=== PATIENT | male | born 1955 | race Asian ===

== ENCOUNTER 2018-10-28 13:27 | Inpatient (IN) | payer BC ==
--- NOTE | 2018-10-28 14:11 | ED ---
HPI Chest Pain - HPI Summary HPI Summary: Pt is a 63 y/o M presenting to the ED with a chief complaint of chest pain onset 3-4 wks ago described as burning, is worsened with exercise, and mostly alleviated by resting. The pain waxes and wanes in severity, presently at 1/10. He sees Dr. Manriquez yearly due to previous angiogram, and was seen this morning and instructed to go to the ED due to an abnormal EKG. He denies associated sob. - History of Current Complaint Chief Complaint: EDChestPainROMI Time Seen by Provider: 10/28/18 13:49 Hx Obtained From: Patient Onset/Duration: Started Weeks Ago, Still Present Timing: Intermittent, Lasting Weeks Initial Severity: Moderate Current Severity: Mild Pain Intensity: 2 Pain Scale Used: 0-10 Numeric Chest Pain Location: Lower Sternal Chest Pain Radiates: No Character: Burning Aggravating Factor(s): Exertion Alleviating Factor(s): Rest Associated Signs and Symptoms: Positive: Chest Pain. Negative: Shortness of Breath - Allergy/Home Medications Allergies/Adverse Reactions: Allergies Allergy/AdvReac Type Severity Reaction Status Date / Time No Known Allergies Allergy Verified 11/29/15 14:10 Home Medications: Home Medications Aspirin 81 mg CHEW TAB* [Aspirin Low Dose TAB*] 81 mg PO DAILY 10/28/18 [ History Confirmed 10/28/18] Multivit-Min/FA/Lycopen/Lutein [Centrum Silver Men Tablet] 1 each PO DAILY 10/28 [History Confirmed 10/28/18] Nitroglycerin TAB 0.4 MG* 0.4 mg SL Q5M PRN 10/28/18 [History Confirmed 10/28/18 ] PMH/Surg Hx/FS Hx/Imm Hx Previously Healthy: Yes Endocrine/Hematology History: Denies: Hx Anticoagulant Therapy Cardiovascular History: Reports: Other Cardiovascular Problems/Disorders - hx angiogram Respiratory History: Denies: Hx Asthma Infectious Disease History: No Infectious Disease History: Denies: Traveled Outside the [place] in Last 30 Days Review of Systems Positive: Chest Pain Negative: Shortness Of Breath All Other Systems Reviewed And Are Negative: Yes Physical Exam - Summary Physical Exam Summary: Appearance: The patient is well-nourished in no acute distress and in no acute pain. Skin: The skin is warm and dry and skin color reflects adequate perfusion. HEENT: The head is normocephalic and atraumatic. The pupils are equal and reactive. The conjunctivae are clear and without drainage. Nares are patent and without drainage. Mouth reveals moist mucous membranes and the throat is without erythema and exudate. The external ears are intact. The ear canals are patent and without drainage. The tympanic membranes are intact. Neck: The neck is supple with full range of motion and non-tender. There are no carotid bruits. There is no neck vein distension. Respiratory: Chest is non-tender. Lungs are clear to auscultation and breath sounds are symmetrical and equal. Cardiovascular: Heart is regular rate and rhythm. There is no murmur or rub auscultated. There is no peripheral edema and pulses are symmetrical and equal. Abdomen: The abdomen is soft and non-tender. There are normal bowel sounds heard in all four quadrants and there is no organomegaly palpated. Musculoskeletal: There is no back tenderness noted. Extremities are non-tender with full range of motion. There is good capillary refill. There is no peripheral edema or calf tenderness elicited. Neurological: Patient is alert and oriented to person, place and time. The patient has symmetrical motor strength in all four extremities. Cranial nerves are grossly intact. Deep tendon reflexes are symmetrical and equal in all four extremities. Psychiatric: The patient has an appropriate affect and does not exhibit any anxiety or depression. Triage Information Reviewed: Yes Vital Signs On Initial Exam: Initial Vitals Temp Pulse Resp BP Pulse Ox 98 F 66 16 127/82 97 10/28/18 13:29 10/28/18 13:29 10/28/18 13:29 10/28/18 13:29 10/28/18 13:29 Vital Signs Reviewed: Yes Diagnostics - Vital Signs Vital Signs Temp Pulse Resp BP Pulse Ox 10/28/18 13:29 98 F 66 16 127/82 97 - Laboratory Result Diagrams: 10/28/18 14:00 10/28/18 14:00 Lab Statement: Any lab studies that have been ordered have been reviewed, and results considered in the medical decision making process. - EKG 1339 Cardiac Rate: NL - 65bpm EKG Rhythm: Sinus Rhythm Chest Pain Course/Dx - Course Course Of Treatment: Mr. Willis presented with a worrisome history for unstable angina over the last several weeks. He was nontoxic in appearance is stable vital signs and a workup was ordered. Dr. cardenas came to the department and took him to the Instrumentation Tech. - Diagnoses Provider Diagnoses: Unstable angina Discharge - Sign-Out/Discharge Documenting (check all that apply): Patient Departure Patient Received Moderate/Deep Sedation with Procedure: No - Discharge Plan Condition: Stable Disposition: ADMITTED TO [facility] Referrals: Kishore Tate MD [Primary Care Provider] - - Billing Disposition and Condition Condition: STABLE Disposition: Admitted to [facility] - Attestation Statements Document Initiated by Scribe: Yes Documenting Scribe: Josiane Park Provider For Whom Teresoibe is Documenting (Include Credential): Meño Dillard MD. Scribe Attestation: Josiane Nova, scribed for Meño Dillard MD. on 10/28/18 at 1839. Scribe Documentation Reviewed: Yes Provider Attestation: The documentation as recorded by the scribeJosiane accurately reflects the service I personally performed and the decisions made by me, Meño Dillard MD. Status of Scribe Document: Viewed Consult Consult: [id number] - Spoke with Dr. Suresh who will be admitting the pt to do a cardiac cath.
[2018-10-28 14:26] LABS: ABS Basophils 0 10^3/ul (0-0.2); ABS Eosinophils 0 10^3/ul (0-0.6); ABS Lymphocytes 1.5 10^3/ul (1.0-4.8); ABS Monocytes 0.4 10^3/ul (0-0.8); ABS Neutrophils 5.1 10^3/ul (1.5-7.7); ABS Nucleated RBC 0 10^3/ul; Eosinophil % 0.3 %; Hematocrit 41 % (36-46); Hemoglobin 14.3 g/dL (14.0-18.0); Lymphocyte % 20.9 %; Mean Corpuscular HGB Conc 35 g/dL (31-36); Mean Corpuscular Hemoglobin 30 pg (27-31); Mean Corpuscular Volume 86 fL (80-94); Mean Platelet Volume 7.7 fL (7.4-10.4); Nucleated Red Blood Cells % 0.1; Platelet Count 204 10^3/uL (150-450); Red Blood Count 4.78 10^6 /uL (4.18-5.48); Red Cell Distribution Width 13 % (10.5-15)
[2018-10-28 14:41] LABS: INR 1.01 (0.77-1.02)
[2018-10-28 14:43] LABS: ALT 17 U/L (7-52); AST 18 U/L (13-39); Albumin 4.3 g/dL (3.2-5.2); Albumin/Globulin Ratio 1.6 (1-3); Alkaline Phosphatase 79 U/L (34-104); Anion Gap 8 mmol/L (2-11); BUN/Creatinine Ratio 15.1 (8-20); Blood Urea Nitrogen 14 mg/dL (6-24); CO2 Carbon Dioxide 27 mmol/L (22-32); Calcium 9.3 mg/dL (8.6-10.3); Chloride 103 mmol/L (101-111); EGFR African American 99.6 (>60); EGFR Non-African American 82.3 (>60); Globulin 2.7 g/dL (2-4); Glucose 108 mg/dL (70-100); Potassium 3.9 mmol/L (3.5-5.0); Sodium 138 mmol/L (135-145)
[2018-10-28] MEDS ORDERED: fentaNYL* 50 MCG/ML 2 ML VIAL (100 MCG VIAL) ONE (14:44)
[2018-10-28] MEDS ORDERED: Midazolam* 1 MG/ML 5 ML VIAL (5 MG) ONE (14:44)
[2018-10-28] MEDS ORDERED: Heparin(*) 1000 UNIT/ML 10 ML VIAL CATH LAB IV ONE (14:44)
[2018-10-28] MEDS ORDERED: Lidocaine 1% INJ* 10 MG/ML 30 ML SDV ONE (14:45)
[2018-10-28] MEDS ORDERED: VERAPAMIL 2.5 MG/ML 2 ML VIAL ** 5 mg/2 ml ONE (14:45)
[2018-10-28] MEDS ORDERED: Iohexol 350 (CONTRAST) 200 ML MDV IV ONE ×2 (14:45→14:47)
[2018-10-28] MEDS ORDERED: nitroGLYCERIN DRIP* 25,000 MCG/250 ML BTL ONE (14:45)
[2018-10-28] MEDS ORDERED: Heparin 2 UNITS/ML IVPREMIX* 3,000 UNIT/1,500 ML BAG IV ONE (14:47)
[2018-10-28 14:51] LABS: Troponin I 0.14 ng/mL (<0.04)
[2018-10-28] MEDS ORDERED: Aspirin 81 mg CHEW TAB* 81 MG TAB.CHEW ONE (14:57)
[2018-10-28 15:11] LABS: TSH (Thyroid Stimulating Horm) 1.39 mcIU/mL (0.34-5.60)
[2018-10-28] MEDS ORDERED: Acetaminophen TAB* 325 MG PO PRN (17:40)
[2018-10-28] MEDS: Enoxaparin(*) 80 MG/0.8 ML SYR SUBCUT SCH (18:57)
[2018-10-28] MEDS: Atorvastatin* 80 MG TAB PO SCH (18:57)
[2018-10-28] MEDS: Metoprolol Tartrate TAB* 25 MG PO SCH (18:57)
[2018-10-28 19:04] LABS: Troponin I 0.16 ng/mL (<0.04)
--- NOTE | 2018-10-28 19:32 | HP ---
CC: Dr. Manriquez HISTORY AND PHYSICAL: DATE OF ADMISSION: 10/28/18 EGG SMELLER: Dr. Manriquez. HISTORY OF PRESENT ILLNESS: A 63-year-old male referred from Dr. Manriquez's office to the ER because o f unstable angina. He had previous catheterization around 1999, which showed no disease. In 2009, he had an 80% distal RPDA stenosis, too small for revascularization. He was treated medically and has done well. He has done an excellent job at secondary risk factor modification, exercises regularly. In hindsight, for the past 4 to 5 weeks, he has had recurring episodes of heartburn, which had been both at rest as wel l as with exertion, and his exercise tolerance has decreased because of the onset of chest pain on . His longest episode of chest pain was a day or two ago, lasted [address] Manriquez today where EKG showed new inferolateral nonspecific ST changes, and he was referred to the E R in anticipation of catheterization. He has no history of palpitations, heart failure, or syncope. PAST MEDICAL HISTORY: Hypertension, hyperlipidemia. PREHOSPITAL MEDICATIONS: 1. Aspirin 81 mg daily. 2. Lipitor 20 mg daily. ALLERGIES: None to medications. FAMILY HISTORY: Positive for premature coronary artery disease with brothers having had stents and h is father having had coronary artery disease in his 50s. SOCIAL HISTORY: He is a nonsmoker. He is . 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 REVIEW OF SYSTEMS: General: No weight loss, no fever. He is active. He exercises. 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 GI: No history of peptic ulcer disease or bleeding. Circulatory: No claudicatio n. Remainder all negative. PHYSICAL EXAMINATION GENERAL: He looks well. He is pain free. He is comfortable. He is articulate. VITAL SIGNS: BP ER 127/82, pulse 63, sinus rhythm. HEENT: No xanthelasma, scleral injection, or jaundice. He does have bilateral arcus senilis. NECK: JVP and carotids normal. No bruits, no thyromegaly. LUNGS: Clear to percussion and auscultation. CARDIAC: Chest wall not tender, apex and RV not palpable, normal heart sounds with regular rhythm. No audible gallop, murmur, or rub. ABDOMEN: Soft, nontender, no bruit. I cannot feel the aorta or liver edge. Femoral pulses 2+, no br uits. EXTREMITIES: Radial pulses 2+, pedal pulses 2+. He has no cyanosis, clubbing, or edema. PSYCH: He is oriented, appropriate. SKIN: Warm and perfused. DIAGNOSTIC STUDIES/LAB DATA: CBC from today is normal, remainder is pending. EKG: ER EKG again shows inferolateral nonspecific ST changes, new from an old tracing, 2009. IMPRESSION: 1. Unstable angina. His DANNY score is 5. We discussed catheterization and possible percutaneous re vascularization. He is familiar with these procedures. We discussed procedural risks, including the potential need for transfer for emergent bypass grafting in case of catastrophic complications. All questions were answered. 2. Hypertension, controlled. 3. Hyperlipidemia, I do not have his most recent lipid profile yet, but he tells me it is excellent. [id number]/[facility] #: [id number]
[2018-10-29 00:40] LABS: Troponin I 0.11 ng/mL (<0.04)
[2018-10-29] MEDS: Metoprolol Tartrate TAB* 25 MG PO SCH (03:04)
[2018-10-29] MEDS: Enoxaparin(*) 80 MG/0.8 ML SYR SUBCUT SCH (06:45)
[2018-10-29] MEDS ORDERED: NS 0.9% 1000 ML** 1,000 ML IV SCH (08:00)
[2018-10-29] MEDS ORDERED: Heparin(*) 1000 UNIT/ML 10 ML VIAL CATH LAB IV ONE (09:21)
[2018-10-29] MEDS ORDERED: nitroGLYCERIN DRIP* 25,000 MCG/250 ML BTL ONE (09:21)
[2018-10-29] MEDS ORDERED: VERAPAMIL 2.5 MG/ML 2 ML VIAL ** 5 mg/2 ml ONE (09:21)
[2018-10-29] MEDS ORDERED: Iohexol 350 (CONTRAST) 200 ML MDV IV ONE ×2 (09:21→09:22)
[2018-10-29] MEDS ORDERED: Lidocaine 1% INJ* 10 MG/ML 30 ML SDV ONE (09:21)
[2018-10-29] MEDS ORDERED: Heparin 2 UNITS/ML IVPREMIX* 2,000 UNIT/1,000 ML BAG IV ONE (09:22)
[2018-10-29] MEDS: Aspirin 81 mg CHEW TAB* 81 MG TAB.CHEW PO SCH (09:31)
[2018-10-29] MEDS ORDERED: fentaNYL* 50 MCG/ML 2 ML VIAL (100 MCG VIAL) ONE (09:50)
[2018-10-29] MEDS ORDERED: Midazolam* 1 MG/ML 5 ML VIAL (5 MG) ONE (09:50)
[2018-10-29] MEDS ORDERED: Ticagrelor* 90 MG TAB PO ONE (10:29)
[2018-10-29] MEDS ORDERED: NS 0.9% 1000 ML** 400 ML IV SCH (11:15)
[2018-10-29] MEDS: Nitroglycerin TAB 0.4 MG* 0.4 MG TAB SL PRN ×2 (19:27→21:47)
[2018-10-29] MEDS: Atorvastatin* 80 MG TAB PO SCH (19:30)
[2018-10-29] MEDS: Ticagrelor* 90 MG TAB PO SCH (20:43)
[2018-10-29] MEDS: Metoprolol Tartrate TAB* 50 mg PO SCH (20:43)
[2018-10-30] MEDS: Metoprolol Tartrate TAB* 25 MG PO SCH (03:36)
[2018-10-30 05:18] LABS: BUN/Creatinine Ratio 13.7 (8-20); Calcium 8.9 mg/dL (8.6-10.3); EGFR African American 97.2 (>60); EGFR Non-African American 80.3 (>60); Potassium 4.1 mmol/L (3.5-5.0)
[2018-10-30] MEDS: Ticagrelor* 90 MG TAB PO SCH (09:54)
[2018-10-30] MEDS: Aspirin 81 mg CHEW TAB* 81 MG TAB.CHEW PO SCH (09:54)
[2018-10-30] MEDS: Metoprolol Tartrate TAB* 50 mg PO SCH (09:54)
[2018-10-30 12:12] LABS: CRP High Sensitivity 0.37 mg/L (<2.00)
[2018-10-30 14:52] VITALS: BP 121/68
--- NOTE | 2018-10-30 21:16 | DS ---
CC: Dr. Kishore Tate; Dr. Manriquez * DISCHARGE SUMMARY: DATE OF ADMISSION: 10/28/18 DATE OF DISCHARGE: 10/30/18 PRIMARY CARE PHYSICIAN: Dr. Kishore Tate. WATER AND GAS HELPER: Dr. Manriquez. DISCHARGE DIAGNOSES: 1. Non-ST elevation myocardial infarction. 2. Coronary artery disease by prior coronary angiography. 3. Strong family history of diabetes. 4. Hyperlipidemia. 5. Hypertension. 6. Hyperglycemia. PROCEDURES: Cardiac cath; stent placement, RCA, radial approach, with deployment of a 4 x 20 Synergy drug-eluting stent postdilated to 4.5 mm NC. CONDITION ON DISCHARGE: Stable. DISCHARGE MEDICATIONS: 1. Aspirin 81 mg daily. 2. Lipitor increased to 80 mg daily in part for pleiotropic benefit. New medications: 1. Metoprolol tartrate 50 mg b.i.d. 2. Brilinta 90 mg b.i.d. for a minimum of 1 year without interruption. Continue nitroglycerin 0.4 sublingual p.r.n. PENDING AT THE TIME OF DISCHARGE: Lab results of hemoglobin A1c and high- sensitivity CRP. FOLLOWUP: He will call tomorrow to make an appointment to follow with Dr. Yun for a wrist check next week, subsequent followup with Dr. Manriquez. HISTORY: See H and P. HOSPITAL COURSE: Labs, postprocedure BMP remained stable. Of note, he had a fasting blood sugar of 116 this morning. Looking back over his glucoses, they have ranged from normal to as high as 116. Hence, A1c was ordered and is pending. His cholesterol was 132 with triglycerides 147, LDL of 59, HDL of 43.7 on his admission dose of Lipitor of 20 mg daily. HS-CRP is pending. Lipitor was increased because of its pleiotropic benefit. He was also started on a beta-wen for cardioprotection. He had stenting as above, with a presentation of typical progressive unstable angina culminating in a non-ST elevation infarct with nonspecific inferolateral ST-T wave changes. Post revascularization of the RCA, he persisted with the same nonspecific inferolateral ST-T wave changes, BMP remained stable. His troponin peaked at 0.16. He has a very strong family history of diabetes. We discussed the concept of prediabetes. Hemoglobin A1c is pending. He had no heart failure symptoms or palpitations. In the evening of the day of stenting, he had left precordial chest discomfort reminiscent of his presenting symptoms gradually resolved with sublingual nitroglycerin and Tylenol. EKG during the episode was actually improved compared to the post revascularization EKG, and EKG today is again stable. This was either noncardiac or perhaps due to microvascular ischemia. He is being discharged today, is asymptomatic and stable, after full discussion of activity, hand care, medications, and followup. [id number]/[facility] #: [id number] WADE
--- NOTE | 2018-10-31 03:32 | CATH ---
CC: Dr. Manriquez; Dr. Kishore Tate * STENT REPORT: DATE OF PROCEDURE: 10/29/18 - ROOM #ICU-10 GEOPHYSICAL DATA TECHNICIAN: Dr. Manriquez. PRIMARY CARE PHYSICIAN: Kishore Tate MD PROCEDURES: Right radial artery access, bilateral selective coronary cineangiography, left heart catheterization, left ventriculography, stent placement RCA, 4.0 x 20 Synergy drug-eluting stent postdilated with 4.5 x 20 mm balloon. HISTORY: A 63-year-old male with known apical PDA disease in the past presenting with progressive unstable angina culminating in a [id number] infarct. PROCEDURE ACCESS: Right radial artery sheath 6F Slender . MEDICATIONS: 1. Subcu lidocaine. 2. IV Versed. 3. IV fentanyl. 4. Heparin 3000 units. 5. Nitroglycerin 300 mcg. 6. Verapamil 3 mg IA. 7. Aspirin 81 mg p.o. DIAGNOSTIC CATHETERS: 5F TIG4, 5F pigtail, guiding catheter RCA, 6FR4, wire [id number] used to deploy the 3 mm x 20 drug-eluting stent in the mid RCA, it was then postdilated with a 4.5 x 20 atmospheres for 30 seconds with reproduction of his angina. HEMODYNAMICS: AO 92/66. LV 102/14, no aortic valve gradient on pullback. ANGIOGRAPHY: Left main: The left main is normal in size and length, there is no stenosis. LAD: The LAD is large, extends past the apex, it supplies a moderate size first diagonal and several distal smaller diagonals, the LAD has scattered luminal irregularity without any significant stenosis. Circumflex: The circumflex is large, not dominant with a small ramus and first marginal, large second marginal, ends with a moderate bifurcated posterolateral. The circumflex has no significant stenosis. RCA: The RCA is very large, dominant with a large distribution, in the midportion there is an eccentric 90% stenosis with distal TIMI2 flow. The PDA is large, is followed by 3 smaller posterolaterals. LV gram: There is mild inferobasilar hypokinesis, estimated LVEF 55%. After drug-eluting stent placement and upsized high-pressure postdilatation, there is distal TIMI3 flow, no residual stenosis, no dissection. CONCLUSION: 1. Single-vessel disease with excellent angiograph results with drug-eluting stent placement followed by high-pressure postdilatation. 2. No angiographic evidence of previously described apical PDA stenosis. 3. Normal LVEF with mild regional wall motional abnormality. 4. Successful right radial artery access. [id number]/[facility] #: [id number] WADE
== END 2018-10-30 12:45 | disposition home or self-care (01) | DRG 174 ==
LOC: ED 13:27 → CHICATH 15:53 → MEDTELE 18:10 → ICU 10-29 11:09 → OBSVTOIN 10-30 12:22
PROVIDERS: ADMIT Internal Medicine Cardiovascular Disease; ATTEND Internal Medicine Cardiovascular Disease
PROC: 4A023N7 Measurement of Cardiac Sampling and Pressure, Left Heart, Percutaneous Approach (ICD-10-PCS; principal; 2018-10-30)
PROC: B2111ZZ Fluoroscopy of Multiple Coronary Arteries using Low Osmolar Contrast (ICD-10-PCS; 2018-10-30)
PROC: B2151ZZ Fluoroscopy of Left Heart using Low Osmolar Contrast (ICD-10-PCS; 2018-10-30)
PROC: 027034Z Dilation of Coronary Artery, One Artery with Drug-eluting Intraluminal Device, Percutaneous Approach (ICD-10-PCS; 2018-10-30)
DX: I21.4 Non-ST elevation (NSTEMI) myocardial infarction (principal); E78.5 Hyperlipidemia, unspecified; I10 Essential (primary) hypertension; I25.110 Atherosclerotic heart disease of native coronary artery with unstable angina pectoris; R73.9 Hyperglycemia, unspecified; Z79.82 Long term (current) use of aspirin; Z83.3 Family history of diabetes mellitus; Z98.61 Coronary angioplasty status; Z82.49 Family history of ischemic heart disease and other diseases of the circulatory system
CPT/HCPCS: 36415; 80048; 80053; 83036; 83605; 84443; 84484; 85025; 85347; 85610; 86141; 87641; 93005; 93458; 96372; 99156; 99157; 99284; A9270-GY; C1725; C1769; C1876; C1887; C9600-RC; J1644; J1650; J2250; J3010

== ENCOUNTER 2024-03-06 10:41 | Observation (INO) ==
[2024-03-06 11:11] LABS: ABS Lymphocytes 1.2 10^3/uL (1.0-4.8); ABS Monocytes 0.3 10^3/uL (0.0-1.1); ABS Neutrophils 4.9 10^3/uL (1.5-7.6); Eosinophil % 0.4 %; Hematocrit 38.7 % (38-53); Hemoglobin 13.4 g/dL (13.2-16.3); Lymphocyte % 18.6 %; Mean Corpuscular Hgb Conc 34.6 g/dL (31-36); Mean Corpuscular Volume 86.7 fL (80-97); Mean Platelet Volume 7.9 fL (7.5-11.2); Platelet Count 192 10^3/uL (150-450); Red Blood Count 4.47 10^6/uL (4.06-5.63); Red Cell Distribution Width 13.4 % (12-17); White Blood Count 6.4 10^3/uL (3.6-10.2)
[2024-03-06 11:25] LABS: High Sens Troponin Baseline 3 pg/mL (<20)
[2024-03-06 11:58] LABS: ALT 20 U/L (7-52); AST 23 U/L (13-39); Albumin 4.3 g/dL (3.2-5.2); Albumin/Globulin Ratio 1.7 (1-3); Alkaline Phosphatase 71 U/L (35-149); Anion Gap 11 mmol/L (2-16); Blood Urea Nitrogen 11 mg/dL (6-24); CO2 Carbon Dioxide 26 mmol/L (22-32); Calcium 9.1 mg/dL (8.6-10.3); Chloride 101 mmol/L (101-111); Creatinine, Serum 0.94 mg/dL (0.67-1.17); Globulin 2.6 g/dL (2-4); Glucose 173 mg/dL (70-100); Potassium 4.3 mmol/L (3.5-5.0); Sodium 138 mmol/L (135-145); Total Bilirubin 0.8 mg/dL (0.2-1.0); Total Protein 6.9 g/dL (6.4-8.9); eGFR CKD-EPI 88.9 (>60)
[2024-03-06 12:30] LABS: INR 1.06 (0.85-1.14)
[2024-03-06 12:46] LABS: High Sensitivity Troponin 1 Hr 3 pg/mL (<20)
[2024-03-06 14:12] LABS: C Reactive Protein < 1.00 mg/L (<8.01)
[2024-03-06 16:21] LABS: High Sensitivity Troponin 3 Hr 3 pg/mL (<20)
[2024-03-06] MEDS ORDERED: Nitroglycerin 0.6 mg TAB SL PRN (18:10)
[2024-03-07 06:28] LABS: ABS Eosinophils 0.1 10^3/uL (0.0-0.5); ABS Lymphocytes 1.6 10^3/uL (1.0-4.8); ABS Monocytes 0.5 10^3/uL (0.0-1.1); ABS Neutrophils 2.8 10^3/uL (1.5-7.6); ABS Nucleated RBC 0.01 10^3/ul; Hematocrit 39.1 % (38-53); Hemoglobin 13.2 g/dL (13.2-16.3); Lymphocyte % 32.1 %; Mean Corpuscular Hemoglobin 29.3 pg (27-33); Mean Corpuscular Hgb Conc 33.8 g/dL (31-36); Mean Corpuscular Volume 86.7 fL (80-97); Mean Platelet Volume 7.7 fL (7.5-11.2); Nucleated Red Blood Cells % 0.2 %/100WBC (0.0-0.8); Platelet Count 183 10^3/uL (150-450); Red Blood Count 4.51 10^6/uL (4.06-5.63); Red Cell Distribution Width 13.5 % (12-17); White Blood Count 4.9 10^3/uL (3.6-10.2)
[2024-03-07 07:01] LABS: Calcium 8.8 mg/dL (8.6-10.3); Creatinine, Serum 0.84 mg/dL (0.67-1.17); HDL Cholesterol 43.8 mg/dL; Potassium 4.3 mmol/L (3.5-5.0); eGFR CKD-EPI 95.6 (>60)
[2024-03-07 14:43] VITALS: BP 116/80
== END 2024-03-07 14:05 | disposition home or self-care (01) ==
LOC: ED 10:41 → EDHOLD 10:41 → MEDTELE 18:47
PROVIDERS: ADMIT Student in an Organized Health Care Education/Training Program; ATTEND Student in an Organized Health Care Education/Training Program